=== PATIENT | female | born 1995 | race Caucasian/White ===

== ENCOUNTER 2019-10-26 19:28 | Emergency (ER) | payer OTHER ==
[2019-10-26] MEDS ORDERED: Lidocaine 1% 10 ML MDV INJECT ONE (20:40)
[2019-10-26] MEDS ORDERED: Diphtheria,Pertussis(Acell),Tetanus Vaccine 0.5 ML Syringe IM ONE (20:41)
--- NOTE | 2019-10-26 21:26 | EDM.PDOC ---
ED HPI GENERAL MEDICAL PROBLEM - General Chief Complaint: Laceration Stated Complaint: FELL GASHED RIGHT KNEE ON METAL BOX Time Seen by Provider: 10/26/19 20:25 Source of Information: Reports: Patient History Limitations: Reports: No Limitations - History of Present Illness INITIAL COMMENTS - FREE TEXT/NARRATIVE: Patient is a 23-year-old female who presents with complaints of a laceration to her right knee. States that she was walking in her house and tripped hitting her knee on a metal box. She has been able to ambulate on the extremity without difficulty. States that her last tetanus vaccination was over 10 years ago. Right Knee Pain Score (Numeric/FACES): 3 - Related Data Allergies Allergy/AdvReac Type Severity Reaction Status Date / Time No Known Allergies Allergy Verified 10/26/19 19:55 Home Meds: Home Meds . [No Known Home Meds] 10/26/19 [History] Past Medical History Other Dermatologic History: cyst removal from neck - Past Surgical History HEENT Surgical History: Reports: Oral Surgery, Tonsillectomy Other HEENT Surgeries/Procedures: [place] teeth extraction Social & Family History - Tobacco Use Smoking Status *Q: Never Smoker - Recreational Drug Use Recreational Drug Use: No ED ROS GENERAL - Review of Systems Review Of Systems: Comprehensive ROS is negative, except as noted in HPI. ED EXAM, SKIN/RASH Exam: See Below Exam Limited By: No Limitations General Appearance: Alert, WD/WN, No Apparent Distress Respiratory/Chest: No Respiratory Distress, Lungs Clear, Normal Breath Sounds, No Accessory Muscle Use, Chest Non-Tender Cardiovascular: Normal Peripheral Pulses, Regular Rate, Rhythm, No Edema, No Gallop, No JVD, No Murmur, No Rub Neurological: Alert, Oriented, CN II-XII Intact, Normal Cognition, Normal Gait, Normal Reflexes, No Motor/Sensory Deficits Psychiatric: Normal Affect, Normal Mood Skin: Other (5 cm horizontal gaping laceration to the right knee.) ED SKIN PROCEDURES - Laceration/Wound Repair Right Anterior Knee Appearance: Subcutaneous, Clean Distal NVT: Neuro & Vascular Intact Anesthetic Type: Local Local Anesthesia - Lidocaine (Xylocaine): 1% Plain Local Anesthetic Volume: 4cc Skin Prep: Chlorhexidine (Hibiciens), Providone-Iodine (Betadine), Saline Exploration/Debridement/Repair: Wound Explored, No Foreign Material Found Closed with: Sutures Lac/Wound length In cm: 5 Suture Size: 3-0 # of Sutures: 7 Suture Type: Nylon Suture Size: 3-0 # of Sutures: 2 Repaired with: Vicryl Sterile Dressing Applied: Provider Tetanus Status Addressed: Yes Complications: No Course - Vital Signs Last Recorded V/S: Last Vital Signs Temp 98.5 F 10/26/19 21:32 Pulse 77 10/26/19 21:32 Resp 18 10/26/19 21:32 BP 120/75 10/26/19 21:32 Pulse Ox 96 10/26/19 21:32 - Orders/Labs/Meds Orders: Active Orders 24 hr Category Date Time Status Vaccines to be Administered [RC] PER UNIT ROUTINE Care 10/26/19 20:41 Active Meds: Medications Discontinued Medications Generic Name Dose Route Start Last Admin Trade Name Sid PRN Reason Stop Dose Admin Diphtheria/Tetanus/Acell Pertussis 0.5 ml 10/26/19 20:41 10/26/19 20:52 Adacel IM 10/26/19 20:42 0.5 ml .ONCE ONE Administration Lidocaine HCl 10 ml 10/26/19 20:40 10/26/19 20:51 Xylocaine 1% INJECT 10/26/19 20:41 10 ml ONETIME ONE Administration Departure - Departure Time of Disposition: 21:26 Disposition: Home, Self-Care 01 Condition: Good Clinical Impression: Laceration - Discharge Information *PRESCRIPTION DRUG MONITORING PROGRAM REVIEWED*: No *COPY OF PRESCRIPTION DRUG MONITORING REPORT IN PATIENT YESSI: No Instructions: Laceration Care, Adult, [id number], Sutures, [place], or Adhesive Wound Closure, [id number] Referrals: PCP,None [Primary Care Provider] - Forms: ED Department Discharge Additional Instructions: You were seen in the emergency department today for a laceration to your right knee. The wound was cleansed and closed with 2 internal sutures which will dissolve, as well as 7 external sutures which need to be removed on Tuesday, November 04. This can be done by any nurse in the clinic. Keep the wound clean and dry. Wash it twice daily with normal soap and water. You may shower as normal. If there is a chance it could become contaminated, you should cover it , however you may otherwise keep it open to air. Watch for signs of infection including increased redness, swelling, or purulent drainage. If these should occur, you should be seen either in the clinic or in the emergency department. Return to the ER as needed. Sepsis Event Note - Evaluation Sepsis Screening Result: No Definite Risk - Focused Exam Vital Signs: Vital Signs Temp Pulse Resp BP Pulse Ox 10/26/19 21:32 98.5 F 77 18 120/75 96 10/26/19 19:56 98.5 F 112 H 19 151/110 H 97 Date Exam was Performed: 10/26/19 Time Exam was Performed: 22:26 - My Orders Last 24 Hours: My Active Orders 10/26/19 20:41 Vaccines to be Administered [RC] PER UNIT ROUTINE - Assessment/Plan Last 24 Hours: My Active Orders 10/26/19 20:41 Vaccines to be Administered [RC] PER UNIT ROUTINE
== END 2019-10-26 21:40 | disposition home or self-care (01) ==
LOC: JD.ED 19:28
DX: S81.011A Laceration without foreign body, right knee, initial encounter (principal); Z23 Encounter for immunization; W22.8XXA Striking against or struck by other objects, initial encounter
CPT/HCPCS: 12032; 90471; 90715; 99282; J2001; 12002

== ENCOUNTER 2022-09-13 22:35 | Inpatient (IN) | payer BC ==
[2022-09-13] MEDS ORDERED: Ondansetron 4 MG/2 ML SDV IVPUSH PRN (23:21)
[2022-09-13] MEDS ORDERED: Calcium Carbonate 500 MG Tab.Chew PO PRN (23:21)
[2022-09-13] MEDS ORDERED: Nalbuphine 10 MG/0.5 ML Syringe IVPUSH PRN (23:21)
[2022-09-13] MEDS ORDERED: Oxytocin/Lactated Ringers 10 UNIT/1,000 ML BAG IV SCH ×2 (23:30)
[2022-09-13] MEDS ORDERED: Lactated Ringers 1,000 ML IV SCH (23:30)
[2022-09-14] MEDS ORDERED: Ropivacaine 0.2% PF 2 MG/ML 20 ML SDV ONE
[2022-09-14] MEDS ORDERED: ePHEDrine 50 MG/ML SDV IVPUSH PRN (04:24)
[2022-09-14] MEDS ORDERED: diphenhydrAMINE 50 MG/ML SDV IVPUSH PRN (04:24)
[2022-09-14] MEDS ORDERED: fentaNYL 100 MCG/2 ML SDV EPIDUR PRN (04:24)
[2022-09-14] MEDS ORDERED: Bupivacaine/fentaNYL/NS 100 ML Bag EPIDUR PRN (04:24)
[2022-09-14] MEDS ORDERED: Sodium Chloride 0.9% 10 ML Syringe FLUSH SCH (09:00)
[2022-09-14] MEDS: Labetalol 100 MG Tab PO SCH ×2 (09:10→20:10)
[2022-09-14] MEDS ORDERED: Misoprostol 200 MCG Tab ONE (10:18)
[2022-09-14] MEDS ORDERED: Misoprostol 200 MCG Tab PO STA (10:24)
[2022-09-14] MEDS ORDERED: Acetaminophen 325 MG Tab PO PRN (11:01)
[2022-09-14] MEDS ORDERED: Docusate Sodium 100 MG Cap PO PRN (11:01)
[2022-09-14] MEDS ORDERED: Benzocaine/Menthol 20%-0.5% Spray 78 GM Cannister TOP PRN (11:01)
[2022-09-14] MEDS ORDERED: Witch Hazel Medicated Pads 40/Jar TOP PRN (11:01)
[2022-09-14] MEDS: Ibuprofen 600 MG Tab PO PRN (20:10)
[2022-09-15] MEDS: Ibuprofen 600 MG Tab PO PRN (05:30)
[2022-09-15] MEDS: Labetalol 100 MG Tab PO SCH (09:03)
== END 2022-09-15 10:49 | disposition home or self-care (01) | DRG 560 ==
LOC: JD.OBCHECK 22:35 → JD.OB 22:39 → JD.OBCHECK 09-14 00:24 → JD.OB 09-14 00:25 → OBSVTOIN 09-14 10:08 → JD.OB 09-14 10:09
PROVIDERS: ADMIT Obstetrics & Gynecology; ATTEND Obstetrics & Gynecology
PROC: 10E0XZZ Delivery of Products of Conception, External Approach (ICD-10-PCS; principal; 2022-09-14)
PROC: 3E0R3BZ Introduction of Anesthetic Agent into Spinal Canal, Percutaneous Approach (ICD-10-PCS; 2022-09-14)
PROC: 00HU33Z Insertion of Infusion Device into Spinal Canal, Percutaneous Approach (ICD-10-PCS; 2022-09-14)
PROC: 0KQM0ZZ Repair Perineum Muscle, Open Approach (ICD-10-PCS; 2022-09-14)
PROC: 3E0P7VZ Introduction of Hormone into Female Reproductive, Via Natural or Artificial Opening (ICD-10-PCS; 2022-09-14)
DX: O42.02 Full-term premature rupture of membranes, onset of labor within 24 hours of rupture (principal); O10.92 Unspecified pre-existing hypertension complicating childbirth; O99.214 Obesity complicating childbirth; O70.1 Second degree perineal laceration during delivery; Z98.890 Other specified postprocedural states; Z37.0 Single live birth; Z3A.38 38 weeks gestation of pregnancy
CPT/HCPCS: 01967; 36415; 51702; 59025; 59409; 80053; 82570; 83615; 84112; 84156; 84450; 84460; 84520; 84550; 85025; 86592; A9270-GY; J2590; J2795; J3490; J7120

== ENCOUNTER 2023-04-07 21:25 | Emergency (ER) | payer BC, OTHER | END 2023-04-07 22:15 | disposition home or self-care (01) | LOC: JD.ED 21:25 | DX: S61.101A Unspecified open wound of right thumb with damage to nail, initial encounter (principal); I10 Essential (primary) hypertension; Z79.899 Other long term (current) drug therapy; X58.XXXA Exposure to other specified factors, initial encounter | CPT/HCPCS: 99283 ==